=== PATIENT | male | born 1945 | race Caucasian/White ===

== ENCOUNTER 2016-08-30 18:08 | Emergency (ER) | payer OTHER ==
[~2016-08-30] VITALS: Ht 188 cm; Wt 104.0 kg
[2016-08-30 18:13] VITALS: BP 119/77
[2016-08-30 19:01] LABS: ADD MIUA? YES; BILIRUBIN NEGATIVE; BLOOD MODERATE; COLOR AMBER ((YELLOW)); GLUCOSE (STRIP) NEGATIVE; KETONES 20; LEUKOCYTES LARGE; NITRITE NEGATIVE; PROTEIN (STRIP) 100; SPECIFIC GRAVITY 1.016 (1.000-1.030)
[2016-08-30 19:11] LABS: HEMATOCRIT 42.9 % (38.0-50.0); MCH 30.6 PG (29.0-34.0); MCHC 35.2 G/DL (30.0-36.0); MCV 86.8 FL (86-99); MEAN PLAT.VOLUME 10.4 uM^3 (9.0-12.4); PLATELET COUNT 176 K/uL (156-360); RED BLOOD COUNT 4.94 M/uL (4.00-5.50); WHITE BLOOD COUNT 12.9 K/uL (4.1-10.2)
[2016-08-30 19:20] LABS: CHLORIDE 98 mEq/L (99-109); POTASSIUM 3.6 mEq/L (3.7-5.4); SODIUM 137 mEq/L (136-147)
[2016-08-30 19:21] LABS: GLUCOSE 102 mg/dL (70-99)
[2016-08-30 19:23] LABS: ANION GAP 13 MEQ/L (2-14)
[2016-08-30 19:25] LABS: GFR ESTIMATE (CALCULATED) > 59 mL/min/
[2016-08-30 19:26] LABS: UREA NITROGEN (BUN) 20 mg/dL (9-23)
[2016-08-30] MEDS ORDERED: BACTRIM,SEPT1 TABLET PO (19:46)
[2016-08-30 19:50] LABS: BACTERIA 2+ /HPF; CASTS NONE SEEN /LPF; CRYSTALS NONE SEEN; EPITHELIAL CELLS RARE /HPF; MUCUS 3+ /LPF; RED BLOOD CELLS 20-30 /HPF (0-5); UCUL ADDED? YES; WHITE BLOOD CELLS TNTC /HPF (0-5)
[2016-08-30 19:55] LABS: TOTAL BILIRUBIN 2.1 mg/dL (0.0-1.0)
[2016-08-30 19:56] LABS: ALKALINE PHOSPHATASE 73 IU/L (3-129)
[2016-08-30 19:59] LABS: DIRECT BILIRUBIN 1.2 mg/dL (0.0-0.3)
[2016-08-30 20:17] LABS: SAMPLE HEMOLYSIS CHECK 0; SAMPLE ICTERIC CHECK 0; SAMPLE LIPEMIA CHECK 0
[2016-08-30 20:35] LABS: LIPASE < 3.0 U/L (1.0-51.0)
== END 2016-08-30 22:37 | disposition left against medical advice (07) ==
LOC: EME 18:08
PROVIDERS: Nurse Practitioner Family
DX: R30.0 Dysuria (principal); R11.2 Nausea with vomiting, unspecified; E78.5 Hyperlipidemia, unspecified; Z87.442 Personal history of urinary calculi; Z88.1 Allergy status to other antibiotic agents
CPT/HCPCS: 74176; 80048; 80076; 81003; 83605; 83690; 85027; 87040; 87077; 87086; 87186; 99281; 99284; J7030

== ENCOUNTER 2016-09-05 21:40 | Inpatient (IN) | payer OTHER ==
[~2016-09-05] VITALS: Ht 188 cm; Wt 91.5 kg
[~2016-09-05 21:40] MED LIST: BACTRIM,SEPT1 TABLET PO
[2016-09-05] MEDS ORDERED: PRAVASTATIN SOD20 MG PO (22:00)
[2016-09-05] MEDS ORDERED: DIGOX125 MCG PO (22:00)
[2016-09-05] MEDS ORDERED: HYDROCHLOROTHIA25 MG PO (22:01)
[2016-09-05] MEDS ORDERED: ASPIR 8181 M1 PO (22:01)
[2016-09-05] MEDS ORDERED: PRIMIDONE250 MG PO (22:02)
[2016-09-05 22:55] LABS: EOSINOPHIL (%) 0 % (0-5); HEMATOCRIT 44.7 % (38.0-50.0); IMMATURE GRANULOCYTE (%) 0.8 % (0.0-0.7); IMMATURE GRANULOCYTE COUNT 0.2 K/uL; INSTRUMENT ABS NEUTROPHIL CT 17.8 K/uL; LYMPHOCYTE COUNT 0.9 K/uL (1.0-2.8); MCH 29.9 PG (29.0-34.0); MCHC 34.5 G/DL (30.0-36.0); MCV 86.8 FL (86-99); MEAN PLAT.VOLUME 10.1 uM^3 (9.0-12.4); MONOCYTE (%) 9.9 % (3-12); MONOCYTE COUNT 2.1 K/uL (0-0.8); NEUTROPHIL COUNT 17.8 K/uL (1.8-6.4); PLATELET COUNT 223 K/uL (156-360); RBC DIS.WIDTH-SD 38.5 % (39-53); RED BLOOD COUNT 5.15 M/uL (4.00-5.50)
[2016-09-05 23:05] LABS: CHLORIDE 98 mEq/L (99-109); POTASSIUM 3.2 mEq/L (3.7-5.4); SODIUM 137 mEq/L (136-147)
[2016-09-05 23:07] LABS: GLUCOSE 130 mg/dL (70-99)
[2016-09-05 23:08] LABS: ANION GAP 12 MEQ/L (2-14)
[2016-09-05 23:09] LABS: INTER. NORMALIZED RATIO 1.3; PROTHROMBIN TIME 13.2 (9.2-11.2); PTT 29.2 (25-32)
[2016-09-05 23:11] LABS: ALKALINE PHOSPHATASE 96 IU/L (3-129); GFR ESTIMATE (CALCULATED) > 59 mL/min/
[2016-09-05 23:12] LABS: TOTAL BILIRUBIN 1.5 mg/dL (0.0-1.0); UREA NITROGEN (BUN) 12 mg/dL (9-23)
[2016-09-05 23:15] LABS: TROP-I INTERPRETATION NEGATIVE; TROPONIN-I < 0.01 ng/mL (0.0-0.30)
[2016-09-05 23:23] LABS: DIGOXIN < 0.3 ng/mL (0.8-2.0)
[2016-09-05 23:38] LABS: ADD MIUA? YES; BILIRUBIN NEGATIVE; BLOOD MODERATE; COLOR AMBER ((YELLOW)); GLUCOSE (STRIP) NEGATIVE; KETONES NEGATIVE; LEUKOCYTES LARGE; NITRITE POSITIVE; PROTEIN (STRIP) 100; SPECIFIC GRAVITY 1.012 (1.000-1.030); UROBILINOGEN 0.2 MG/DL (0.2-1.0)
[2016-09-05 23:50] LABS: BACTERIA 3+ /HPF; EPITHELIAL CELLS 1+ /HPF; MUCUS 3+ /LPF; RED BLOOD CELLS 40-50 /HPF (0-5); UCUL ADDED? YES; WHITE BLOOD CELLS TNTC /HPF (0-5)
[2016-09-06] VITALS (9 sets, daily range): BP systolic 97–130; BP diastolic 52–68
[2016-09-06 01:01] LABS: MAGNESIUM 1.6 mg/dL (1.3-2.7)
[2016-09-06 12:10] LABS: HEMATOCRIT 38.2 % (38.0-50.0); MCH 30.3 PG (29.0-34.0); MCHC 34.3 G/DL (30.0-36.0); MCV 88.2 FL (86-99); MEAN PLAT.VOLUME 10.1 uM^3 (9.0-12.4); PLATELET COUNT 174 K/uL (156-360); RBC DIS.WIDTH-CV 12.2 % (11.8-14.6); RBC DIS.WIDTH-SD 39.8 % (39-53); RED BLOOD COUNT 4.33 M/uL (4.00-5.50); WHITE BLOOD COUNT 18.3 K/uL (4.1-10.2)
[2016-09-06 12:24] LABS: ANION GAP 9 MEQ/L (2-14); CHLORIDE 103 MEQ/L (99-109); GFR ESTIMATE (CALCULATED) > 59 mL/min/; GLUCOSE 155 mg/dL (70-99); SAMPLE HEMOLYSIS CHECK 0; SAMPLE ICTERIC CHECK 0; SAMPLE LIPEMIA CHECK 0; SODIUM 139 MEQ/L (136-147); UREA NITROGEN (BUN) 12 mg/dL (9-23)
[2016-09-06 12:37] LABS: POTASSIUM 3.9 MEQ/L (3.7-5.4)
[2016-09-06 12:39] LABS: TROP-I INTERPRETATION NEGATIVE; TROPONIN-I < 0.01 ng/mL (0.0-0.30)
[2016-09-06 21:41] LABS: ANION GAP 13 MEQ/L (2-14); CHLORIDE 103 MEQ/L (99-109); POTASSIUM 4.1 MEQ/L (3.7-5.4); SAMPLE HEMOLYSIS CHECK 0; SAMPLE ICTERIC CHECK 0; SAMPLE LIPEMIA CHECK 0; SODIUM 140 MEQ/L (136-147); TOTAL BILIRUBIN 1.4 MG/DL (0.0-1.0)
[2016-09-06 21:42] LABS: BASE EXCESS -1.4 mEq/L (-3 to +3); BICARBONATE 22.8 mEq/L (22-26); CARBOXY HGB 2.7 % (0-5); METHEMOGLOBIN 1.8 % (0-1.5); PCO2 36 mm Hg (35-45); PO2 75 mm Hg (80-100); pH 7.41 (7.35-7.45)
[2016-09-06 21:43] LABS: COMMENTS - BLOOD GASES C+A+; DEVICE VENTURI MASK; FI02 40 %; O2 FLOW 8 L/MIN; SITE RR; TOTAL RESP RATE 20 resp/min
[2016-09-06 21:47] LABS: ALKALINE PHOSPHATASE 90 IU/L (3-129); GFR ESTIMATE (CALCULATED) > 59 mL/min/; GLUCOSE 119 mg/dL (70-99); UREA NITROGEN (BUN) 13 mg/dL (9-23)
[2016-09-06 22:23] LABS: HEMATOCRIT 43.9 % (38.0-50.0); MCH 30.5 PG (29.0-34.0); PLAT.SUFFICIENCY ADEQUATE; RBC DIS.WIDTH-CV 12.3 % (11.8-14.6); RBC DIS.WIDTH-SD 42.2 % (39-53); RED BLOOD COUNT 4.75 M/uL (4.00-5.50); WHITE BLOOD COUNT 17.3 K/uL (4.1-10.2)
[2016-09-06 23:10] LABS: MCV 92.4 FL (86-99); PLATELET COUNT 239 K/uL (156-360)
[2016-09-06 23:48] LABS: DIGOXIN 0.3 ng/mL (0.8-2.0)
[2016-09-07] VITALS (11 sets, daily range): BP systolic 86–145; BP diastolic 50–74
[2016-09-07 01:35] LABS: SODIUM 140 mEq/L (136-147)
[2016-09-07 01:36] LABS: GLUCOSE 148 mg/dL (70-99)
[2016-09-07 01:38] LABS: ANION GAP 8 MEQ/L (2-14); HEMATOCRIT 37.6 % (38.0-50.0); MCH 30.4 PG (29.0-34.0); MCV 89.3 FL (86-99); MEAN PLAT.VOLUME 10.2 uM^3 (9.0-12.4); PLATELET COUNT 158 K/uL (156-360); RBC DIS.WIDTH-CV 12.4 % (11.8-14.6); RBC DIS.WIDTH-SD 40.5 % (39-53); RED BLOOD COUNT 4.21 M/uL (4.00-5.50); WHITE BLOOD COUNT 16.2 K/uL (4.1-10.2)
[2016-09-07 01:40] LABS: GFR ESTIMATE (CALCULATED) > 59 mL/min/
[2016-09-07 01:41] LABS: UREA NITROGEN (BUN) 14 mg/dL (9-23)
[2016-09-07 01:42] LABS: POTASSIUM 3.2 mEq/L (3.7-5.4)
[2016-09-07 01:43] LABS: CHLORIDE 109 mEq/L (99-109)
[2016-09-07 09:42] LABS: MAGNESIUM 1.8 mg/dL (1.3-2.7)
[2016-09-08 04:44] VITALS: BP 122/73
[2016-09-08 07:16] VITALS: BP 128/77
[2016-09-08 07:56] LABS: HEMATOCRIT 36.7 % (38.0-50.0); MCH 29.7 PG (29.0-34.0); MCV 90.2 FL (86-99); MEAN PLAT.VOLUME 10.8 uM^3 (9.0-12.4); PLATELET COUNT 158 K/uL (156-360); RBC DIS.WIDTH-CV 12.8 % (11.8-14.6); RBC DIS.WIDTH-SD 42.4 % (39-53); RED BLOOD COUNT 4.07 M/uL (4.00-5.50); WHITE BLOOD COUNT 11.4 K/uL (4.1-10.2)
[2016-09-08 08:15] LABS: ANION GAP 7 MEQ/L (2-14); CHLORIDE 107 MEQ/L (99-109); GFR ESTIMATE (CALCULATED) > 59 mL/min/; GLUCOSE 122 mg/dL (70-99); POTASSIUM 3.6 MEQ/L (3.7-5.4); SAMPLE HEMOLYSIS CHECK 0; SAMPLE ICTERIC CHECK 0; SAMPLE LIPEMIA CHECK 0; SODIUM 140 MEQ/L (136-147); UREA NITROGEN (BUN) 14 mg/dL (9-23)
[2016-09-08 11:36] VITALS: BP 131/77
[2016-09-08 16:35] VITALS: BP 146/80
[2016-09-08 20:45] VITALS: BP 130/83
[2016-09-08 23:30] VITALS: BP 130/82
[2016-09-09 04:09] VITALS: BP 135/79
[2016-09-09 05:09] LABS: HEMATOCRIT 35.7 % (38.0-50.0); MCH 30.2 PG (29.0-34.0); MCHC 34.2 G/DL (30.0-36.0); MCV 88.4 FL (86-99); MEAN PLAT.VOLUME 10.5 uM^3 (9.0-12.4); PLATELET COUNT 175 K/uL (156-360); RBC DIS.WIDTH-CV 12.6 % (11.8-14.6); RBC DIS.WIDTH-SD 41.2 % (39-53); RED BLOOD COUNT 4.04 M/uL (4.00-5.50)
[2016-09-09 05:39] LABS: ANION GAP 5 MEQ/L (2-14); CHLORIDE 108 MEQ/L (99-109); GFR ESTIMATE (CALCULATED) > 59 mL/min/; MAGNESIUM 1.9 mg/dl (1.3-2.7); POTASSIUM 3.7 MEQ/L (3.7-5.4); SAMPLE HEMOLYSIS CHECK 0; SAMPLE ICTERIC CHECK 0; SAMPLE LIPEMIA CHECK 0; SODIUM 142 MEQ/L (136-147); UREA NITROGEN (BUN) 8 mg/dL (9-23)
[2016-09-09 05:40] LABS: GLUCOSE 90 mg/dL (70-99)
[2016-09-09 08:20] VITALS: BP 143/91
[2016-09-09] MEDS ORDERED: MYSOLINE50 MG PO (09:09)
[2016-09-09 11:37] VITALS: BP 139/81
[2016-09-09] MEDS ORDERED: CEFDINIR300 MG PO (14:55)
[2016-09-09] MEDS ORDERED: LO-DOSE ASPIRIN81 M2 PO (14:55)
[2016-09-09 15:33] VITALS: BP 137/81
== END 2016-09-09 18:15 | disposition home health service (06) | DRG 872 ==
LOC: EME 21:40 → EDOF 09-06 00:12 → 4EAST 09-06 00:12 → 3EAST 09-08 21:58
PROVIDERS: Emergency Medicine; Hospitalist; Internal Medicine; Physician Assistant Medical
PROC: 0T9430Z Drainage of Left Kidney Pelvis with Drainage Device, Percutaneous Approach (ICD-10-PCS; principal; 2016-09-06)
DX: A41.51 Sepsis due to Escherichia coli [E. coli] (principal); R31.0 Gross hematuria; N13.6 Pyonephrosis; N11.1 Chronic obstructive pyelonephritis; I48.91 Unspecified atrial fibrillation; E87.6 Hypokalemia; E83.42 Hypomagnesemia; R19.7 Diarrhea, unspecified; Z87.442 Personal history of urinary calculi; E78.5 Hyperlipidemia, unspecified; G25.0 Essential tremor; R65.20 Severe sepsis without septic shock; E87.2 Acidosis
CPT/HCPCS: 36600; 50433; 71010; 74176; 80048; 80053; 80162; 81003; 82803; 83605; 83735; 84484; 85025; 85027; 85610; 85730; 87040; 87077; 87086; 87186; 87493; 93005; 94799; 99281; 99285; C1769; J0692; J0696; J1160; J1644; J1885; J2060; J2543; J3010; J3475; J3480; J7030; J7040; J7050; J7120; S0028

== ENCOUNTER → 2016-10-06 | Outpatient (CLI) | payer OTHER ==
[~2016-10-06] MED LIST changes: +ASPIR 8181 M1 PO; +CEFDINIR300 MG PO; +DIGOX125 MCG PO; +HYDROCHLOROTHIA25 MG PO; +LO-DOSE ASPIRIN81 M2 PO; +MYSOLINE50 MG PO; +PRAVASTATIN SOD20 MG PO; +PRIMIDONE250 MG PO
== END | disposition home or self-care (01) ==
LOC: NUC 10:20
DX: N13.30 Unspecified hydronephrosis (principal); Z93.6 Other artificial openings of urinary tract status; R94.4 Abnormal results of kidney function studies
CPT/HCPCS: 78709; A9562

== ENCOUNTER → 2016-10-30 | Outpatient (CLI) | payer MEDICARE | END | disposition home or self-care (01) | LOC: CDC 14:01 | DX: I48.91 Unspecified atrial fibrillation (principal); R94.31 Abnormal electrocardiogram [ECG] [EKG]; N20.0 Calculus of kidney | CPT/HCPCS: 93000 ==

== ENCOUNTER 2016-11-09 05:14 | Day surgery (SDC) | payer OTHER ==
[~2016-11-09] VITALS: Ht 188 cm; Wt 97.5 kg
[~2016-11-09 05:14] MED LIST changes: +ASPIRIN81 M2 PO; +HYDROCHLOROTH12.5 M3 PO; +NITROFURANTOIN50 MG PO; +PRAVACHOL20 MG PO
[2016-11-09 05:56] VITALS: BP 136/85
[2016-11-09] MEDS ORDERED: ENDOCET 5-3251 EACH PO (10:08)
[2016-11-09] MEDS ORDERED: DOCUSATE SODIU100 MG PO (10:08)
[2016-11-09] MEDS ORDERED: TAMSULOSIN HCL0.4 MG PO (10:08)
[2016-11-09] MEDS ORDERED: CIPRO500 MG PO (10:08)
[2016-11-09 10:20] VITALS: BP 128/71
[2016-11-09 13:24] LABS: HEMATOCRIT 43.8 % (38.0-50.0); MCHC 34.9 G/DL (30.0-36.0); MCV 88.8 FL (86-99); MEAN PLAT.VOLUME 10.2 uM^3 (9.0-12.4); PLATELET COUNT 162 K/uL (156-360); RBC DIS.WIDTH-CV 12.9 % (11.8-14.6); RBC DIS.WIDTH-SD 42.2 % (39-53); RED BLOOD COUNT 4.93 M/uL (4.00-5.50); WHITE BLOOD COUNT 8.4 K/uL (4.1-10.2)
[2016-11-09 16:12] VITALS: BP 102/59
[2016-11-09 20:25] VITALS: BP 111/55
[2016-11-10 00:11] VITALS: BP 108/56
[2016-11-10 03:48] VITALS: BP 109/56
[2016-11-10 07:12] VITALS: BP 121/61
[2016-11-10 07:15] LABS: HEMATOCRIT 41.4 % (38.0-50.0); MCH 30.4 PG (29.0-34.0); MCHC 34.3 G/DL (30.0-36.0); MCV 88.7 FL (86-99); MEAN PLAT.VOLUME 10.9 uM^3 (9.0-12.4); PLATELET COUNT 169 K/uL (156-360); RBC DIS.WIDTH-CV 12.8 % (11.8-14.6); RBC DIS.WIDTH-SD 41.5 % (39-53); RED BLOOD COUNT 4.67 M/uL (4.00-5.50); WHITE BLOOD COUNT 11.9 K/uL (4.1-10.2)
[2016-11-10 07:28] LABS: ANION GAP 8 MEQ/L (2-14); CHLORIDE 102 MEQ/L (99-109); GFR ESTIMATE (CALCULATED) > 59 mL/min/; GLUCOSE 125 mg/dL (70-99); SAMPLE HEMOLYSIS CHECK 0; SAMPLE ICTERIC CHECK 0; SAMPLE LIPEMIA CHECK 0; SODIUM 140 MEQ/L (136-147); UREA NITROGEN (BUN) 14 mg/dL (9-23)
[2016-11-10 11:54] VITALS: BP 114/65
== END 2016-11-10 13:17 | disposition home or self-care (01) ==
LOC: SDC → 2SOUTH 09:51 → 2EAST 09:51 → SDC 15:02 → 2EAST 11-10 13:17
PROVIDERS: Urology
PROC: 0TC13ZZ Extirpation of Matter from Left Kidney, Percutaneous Approach (ICD-10-PCS; principal; 2016-11-09)
DX: N20.0 Calculus of kidney (principal); Z88.0 Allergy status to penicillin; I10 Essential (primary) hypertension; I48.91 Unspecified atrial fibrillation; Z87.442 Personal history of urinary calculi; Z82.49 Family history of ischemic heart disease and other diseases of the circulatory system; Z84.1 Family history of disorders of kidney and ureter; Z83.3 Family history of diabetes mellitus; Z79.82 Long term (current) use of aspirin
CPT/HCPCS: 74000; 80048; 82365 90; 85027; C1726; C1769; C1876; G0378; J0131; J0290; J0330; J1100; J1580; J2405; J2710; J3010; J7050; J7120; S0020